=== PATIENT | female | born 1995 | race Caucasian/White ===

== ENCOUNTER 2017-11-01 23:59 | Emergency (ER) | payer OTHER ==
[~2017-11-01 23:59] MED LIST: DICY1TAB26 PO; PANT20 PO; SUCR1TAB PO
[2017-11-02 00:31] VITALS: BP 103/56; PULSE 105; RESP 16; TEMP 98.5; O2SAT 100
[2017-11-02 00:54] VITALS: BP 104/62; PULSE 100; RESP 16; O2SAT 100
[2017-11-02 01:25] LABS: AUTOMATED NEUTROPHIL # 7.6 TH/MM3 (1.8-7.7); BASOPHIL # 0.1 TH/MM3 (0-0.2); BASOPHIL % 0.8 % (0.0-2.0); EOSINOPHIL # 0.3 TH/MM3 (0-0.4); EOSINOPHIL % 2.3 % (0.0-4.0); HEMATOCRIT 33.9 % (35.0-46.0); HEMOGLOBIN 11.8 GM/DL (11.6-15.3); LYMPHOCYTE # 2.1 TH/MM3 (1.0-4.8); MEAN CELL VOLUME 86.6 FL (80.0-100.0); MEAN CORPUSCULAR HEMOGLOBIN 30.2 PG (27.0-34.0); MEAN CORPUSCULAR HGB CONC 34.9 % (32.0-36.0); MEAN PLATELET VOLUME 9.5 FL (7.0-11.0); NEUT % 68.9 % (16.0-70.0); PLATELET COUNT 335 TH/MM3 (150-450); RED BLOOD COUNT 3.91 MIL/MM3 (4.00-5.30); RED CELL DISTRIBUTION WIDTH 14.1 % (11.6-17.2)
[2017-11-02] MEDS ORDERED: SODIUM CHLOR 0.9% 1000 ML INJ 1,000 ML IV ONE (01:30)
[2017-11-02] MEDS ORDERED: FAMOTIDINE 20 MG/2 ML VIAL IV PUSH SCH (01:30)
[2017-11-02 01:32] LABS: AMORPHOUS SEDIMENT, URINE OCC; BILIRUBIN, URINE NEG (NEG); BLOOD, URINE NEG (NEG); GLUCOSE,URINE NEG (NEG); KETONE, URINE NEG (NEG); MUCUS URINE FEW /lpf (OCC); NITRITE,URINE NEG (NEG); PH, URINE 7.5 (5.0-8.5); SQUAMOUS EPITHELIAL CELL URINE 5 /hpf (0-5); URINE COLOR LIGHT-YELLOW (YELLW/STRAW); URINE LEUKOCYTE ESTERASE NEG (NEG)
[2017-11-02 01:50] LABS: ALBUMIN 3.1 GM/DL (3.4-5.0); ALT (GPT) 19 U/L (10-53); AST (GOT) 14 U/L (15-37); BICARBONATE 30.2 MEQ/L (21.0-32.0); BLOOD UREA NITROGEN 13 MG/DL (7-18); CALCIUM 8.6 MG/DL (8.5-10.1); CHLORIDE 103 MEQ/L (98-107); CREATININE 0.74 MG/DL (0.50-1.00); GLOMERULAR FILTRATION RATE 98 ML/MIN (>89); GLUCOSE,RANDOM 78 MG/DL (74-106); SODIUM (NA) 141 MEQ/L (136-145)
[2017-11-02 01:53] LABS: ALKALINE PHOSPHATASE 76 U/L (45-117); TOTAL BILIRUBIN ADULT 0.2 MG/DL (0.2-1.0); TOTAL PROTEIN 7.6 GM/DL (6.4-8.2)
[2017-11-02 02:43] VITALS: BP 108/69; PULSE 97; RESP 16; TEMP 98.4; O2SAT 100
[2017-11-02] MEDS ORDERED: SUCRALFATE 1 GM/10 ML CUP PO ONE (03:15)
[2017-11-02] MEDS ORDERED: LIDOCAINE VISCOUS 2% SOLN 15 ML UDC SWISH-SWAL ONE (03:15)
[2017-11-02] MEDS ORDERED: ALUMINUM/MAGNESIUM/SIMETH 30 ML CUP PO ONE (03:15)
--- NOTE | 2017-11-02 03:35 | PD ---
HPI Chief Complaint: Abdominal Pain Time Seen by Provider: 00:50 Travel History International Travel<30 days: No Contact w/Intl Traveler<30days: No Traveled to known affect area: No History of Present Illness HPI Patient has had 5 days of epigastric pain off and on for the last few days apparently she was in [facility] earlier today where they did a CAT scan CTA of her chest to rule out pulmonary embolism. It was negative that was done to to explain her shortness of breath. She left there and then pain came back epigastric pain. It is constant it is burning it is epigastric. It does not radiate to the back. She denies diarrhea , she denies dysuria she denies nausea vomiting. The pain is is localized. The pain not responding to the medication she was given upon discharge from other hospital. [facility] Past Medical History Medical History: Denies Significant Hx Autoimmune Disease: No Cardiovascular Problems: No Diminished Hearing: No Genitourinary: No Neurologic: No Psychiatric: No Respiratory: No Immunizations Current: Yes Tetanus Vaccination: Unknown ?: Not LMP: 10/21/17 Dilation and Curettage (D&C): Yes Past Surgical History Oral Surgery: Yes (TONSILLECTOMY) Tonsillectomy: Yes Other Surgery: No Social History Alcohol Use: Yes (occasionally) Tobacco Use: Yes (1 ppd) Substance Use: Yes (marijuana) Allergies-Medications (Allergen,Severity, Reaction): Coded Allergies: amoxicillin (Unverified Allergy, Severe, Wheezing, 02/19/17) Reported Meds & Prescriptions Reported Meds & Active Scripts Active Review of Systems Except as stated in HPI: all other systems reviewed are Neg Physical Exam Narrative GENERAL: Nontoxic-appearing SKIN: Warm and dry. HEAD: Atraumatic. Normocephalic. EYES: Pupils equal and round. No scleral icterus. No injection or drainage. ENT: No nasal bleeding or discharge. Mucous membranes pink and moist. NECK: Trachea midline. No JVD. CARDIOVASCULAR: Regular rate and rhythm. RESPIRATORY: No accessory muscle use. Clear to auscultation. Breath sounds equal bilaterally. GASTROINTESTINAL: Abdomen tender in the epigastric periumbilical area no right lower quadrant tenderness no right upper quadrant tenderness . Hepatic and splenic margins not palpable. MUSCULOSKELETAL: Extremities without clubbing, cyanosis, or edema. No obvious deformities. NEUROLOGICAL: Awake and alert. No obvious cranial nerve deficits. Motor grossly within normal limits. Five out of 5 muscle strength in the arms and legs. Normal speech. PSYCHIATRIC: Appropriate mood and affect; insight and judgment normal. Data Data Last Documented VS Orders Orders Complete Blood Count With Diff (11/02/17 00:56) Comprehensive Metabolic Panel (11/02/17 00:56) Urinalysis - C+S If Indicated (11/02/17 00:56) Ed Urine Pregnancytest Poc (11/02/17 00:56) Iv Access Insert/Monitor (11/02/17 00:56) Oxygen Administration (11/02/17 00:56) Oximetry (11/02/17 00:56) Lipase (11/02/17 00:56) Sodium Chlor 0.9% 1000 Ml Inj (Ns 1000 M (11/02/17 01:30) Famotidine Inj (Pepcid Inj) (11/02/17 01:30) Al-Mag Hy-Si 40-40-4 Mg/Ml Liq (Mag-Al P (11/02/17 03:15) Lidocaine 2% Viscous (Xylocaine 2% Visco (11/02/17 03:15) Sucralfate Liq (Carafate Liq) (11/02/17 03:15) Ketorolac Inj (Toradol Inj) (11/02/17 04:00) Morphine Inj (Morphine Inj) (11/02/17 04:00) Ed Discharge Order (11/02/17 04:30) Labs Laboratory Tests Test 11/02/17 01:00 White Blood Count 11.0 TH/MM3 Red Blood Count 3.91 MIL/MM3 Hemoglobin 11.8 GM/DL Hematocrit 33.9 % Mean Corpuscular Volume 86.6 FL Mean Corpuscular Hemoglobin 30.2 PG Mean Corpuscular Hemoglobin Concent 34.9 % Red Cell Distribution Width 14.1 % Platelet Count 335 TH/MM3 Mean Platelet Volume 9.5 FL Neutrophils (%) (Auto) 68.9 % Lymphocytes (%) (Auto) 19.0 % Monocytes (%) (Auto) 9.0 % Eosinophils (%) (Auto) 2.3 % Basophils (%) (Auto) 0.8 % Neutrophils # (Auto) 7.6 TH/MM3 Lymphocytes # (Auto) 2.1 TH/MM3 Monocytes # (Auto) 1.0 TH/MM3 Eosinophils # (Auto) 0.3 TH/MM3 Basophils # (Auto) 0.1 TH/MM3 CBC Comment DIFF FINAL Differential Comment Urine Color LIGHT-YELLOW Urine Turbidity HAZY Urine pH 7.5 Urine Specific [place] 1.017 Urine Protein NEG mg/dL Urine Glucose (UA) NEG mg/dL Urine Ketones NEG mg/dL Urine Occult Blood NEG Urine Nitrite NEG Urine Bilirubin NEG Urine Urobilinogen LESS THAN 2.0 MG/DL Urine Leukocyte Esterase NEG Urine WBC 3 /hpf Urine Squamous Epithelial Cells 5 /hpf Urine Amorphous Sediment OCC Urine Mucus FEW /lpf Microscopic Urinalysis Comment CULT NOT INDICATED Blood Urea Nitrogen 13 MG/DL Creatinine 0.74 MG/DL Random Glucose 78 MG/DL Total Protein 7.6 GM/DL Albumin 3.1 GM/DL Calcium Level 8.6 MG/DL Alkaline Phosphatase 76 U/L Aspartate Amino Transf (AST/SGOT) 14 U/L Alanine Aminotransferase (ALT/SGPT) 19 U/L Total Bilirubin 0.2 MG/DL Sodium Level 141 MEQ/L Potassium Level 3.5 MEQ/L Chloride Level 103 MEQ/L Carbon Dioxide Level 30.2 MEQ/L Anion Gap 8 MEQ/L Estimat Glomerular Filtration Rate 98 ML/MIN Lipase 129 U/L [facility] Medical Decision Making Medical Screen Exam Complete: Yes Emergency Medical Condition: Yes Differential Diagnosis Differential diagnosis is GERD versus gastritis versus cholecystitis versus pancreatitis versus colitis versus mesenteric adenitis Narrative Course Patient is given GI cocktail viscous lidocaine Carafate liquid the defects and decreases her pain and Toradol 30 mg IV and 2 of morphine she is discharged to follow-up as an outpatient gastritis GERD is her diagnosis labs within normal limits LFTs are normal no signs of need for further investigation I do not want to CAT scan this young 22-year-old female because I do not think this is anything that would need surgical intervention Diagnosis Primary Impression: Gastritis Qualified Codes: K29.70 - Gastritis, unspecified, without bleeding Patient Instructions: Gastritis (ED), General Instructions Disposition: 01 DISCHARGE HOME Condition: Rah Betancur MD Nov 02, 2017 03:35
[2017-11-02] MEDS ORDERED: KETOROLAC TROMETHAMINE 30 MG/ML (IVP) VIAL IV PUSH ONE (04:00)
[2017-11-02] MEDS ORDERED: MORPHINE SULFATE 2 MG/ML SYRINGE IV PUSH ONE (04:00)
== END 2017-11-02 05:13 | disposition home or self-care (01) ==
LOC: NEPE 23:59
DX: K29.70 Gastritis, unspecified, without bleeding (principal); F12.90 Cannabis use, unspecified, uncomplicated; F17.200 Nicotine dependence, unspecified, uncomplicated
CPT/HCPCS: 80053; 81001; 83690; 84703; 85025; 96361; 96374; 96375; 99284; J1885; J2270; J7030